=== PATIENT | male | born 1955 | race Caucasian/White ===

== ENCOUNTER 2018-05-07 14:57 | Inpatient (IN) | payer MEDICAID, OTHER ==
[2018-05-07 15:28] LABS: ADD MAN DIFF? NO
[2018-05-07 15:34] LABS: WHITE BLOOD COUNT 7.2 10^3/ul (4.8-10.8)
[2018-05-07 15:34] LABS: BASOPHIL # 0.1 10^3/ul (0.0-0.1); BASOPHILS % 0.8 % (0.0-2.0); EOSINOPHILS # 0.1 10^3/ul (0.0-0.5); EOSINOPHILS % 1.7 % (0.0-7.0); HEMATOCRIT 40.4 % (42.0-52.0); HEMOGLOBIN 13.7 g/dl (14.0-18.0); LYMPHOCYTES # 1.5 10^3/ul (0.8-2.9); LYMPHOCYTES % 20.5 % (15.0-51.0); MEAN CORPUSCULAR HEMOGLOBIN 31.4 pg (29.0-33.0); MEAN CORPUSCULAR HGB CONC 33.9 g/dl (32.0-37.0); MEAN CORPUSCULAR VOLUME 92.4 fl (82.0-101.0); MEAN PLATELET VOLUME 12.2 fl (7.4-10.4); MONOCYTE # 0.6 10^3/ul (0.3-0.9); MONOCYTES % 8.8 % (0.0-11.0); NEUTROPHIL # 4.8 10^3/ul (1.6-7.5); NEUTROPHILS % 66.9 % (39.0-77.0); PLATELET COUNT 132 10^3/UL (140-415); RED BLOOD COUNT 4.37 10^6/ul (4.70-6.10); RED CELL DISTRIBUTION WIDTH 13.2 % (11.5-14.5)
[2018-05-07 15:50] LABS: ANION GAP 16 (8-16); BLOOD UREA NITROGEN 15 mg/dl (7-20); CALCIUM 9.1 mg/dl (8.4-10.2); CARBON DIOXIDE 23 mmol/L (21-31); CHLORIDE 105 mmol/L (97-110); CREATININE 0.73 mg/dl (0.61-1.24); GLUCOSE 118 mg/dl (70-220); MAGNESIUM 1.9 mg/dl (1.7-2.5); POTASSIUM 3.9 mmol/L (3.5-5.1); SODIUM 140 mmol/L (135-144)
[2018-05-07 15:53] LABS: INR 1.02; PARTIAL THROMBOPLASTIN TIME 27.5 Sec (25.0-35.0); PROTIME 13.5 Sec (11.9-14.9); PT RATIO 1.1
[2018-05-07 16:02] LABS: TROPONIN-I 0.011 ng/ml (0.000-0.120)
[2018-05-07] MEDS ORDERED: DOCUSATE SODIUM 100 MG CAP PO (17:00)
[2018-05-07] MEDS ORDERED: NACL 0.9% 3 ML SYG IV (17:00)
[2018-05-07] MEDS ORDERED: NITROGLYCERIN (SL) 0.4 MG TAB SL (17:00)
[2018-05-07] MEDS ORDERED: MAGNESIUM HYDROXIDE 30ML CUP PO (17:00)
[2018-05-07] MEDS ORDERED: ONDANSETRON 4 MG INJ IV (17:00)
[2018-05-07] MEDS: ASPIRIN 325 MG TAB PO (17:02)
[2018-05-07] MEDS ORDERED: GLUCAGON 1 MG INJ IM (19:00)
[2018-05-07] MEDS ORDERED: GLUCOSE GEL 15 GRAM TUBE PO ×2 (19:00)
[2018-05-07] MEDS ORDERED: GLUCOSE GEL 15 GRAM TUBE BUCCAL (19:00)
[2018-05-07] MEDS ORDERED: DEXTROSE 50% 50 ML SYRINGE IV ×2 (19:00)
[2018-05-07] MEDS: HYPOGLYCEMIA PROTOCOL when Glucose is <70 mg/dL or symptomatic <90 mg/dL. XX (19:52)
[2018-05-07 20:19] LABS: CREATINE KINASE 686 IU/L (23-200)
[2018-05-07 20:31] LABS: CK INDEX 1.6; TROPONIN-I 0.033 ng/ml (0.000-0.120)
[2018-05-07] MEDS: INSULIN ASPART [NOVOLOG] 3 ML PEN SC (20:41)
[2018-05-07] MEDS: HYDROCODONE/APAP (5/325) TAB PO (21:27)
[2018-05-07] MEDS: NITROGLYCERIN 2% 1 GM OINT PKT TD (21:28)
[2018-05-08 00:05] LABS: CREATINE KINASE 811 IU/L (23-200)
[2018-05-08] MEDS: ACETAMINOPHEN 325 MG TAB PO ×2 (00:17→06:06)
[2018-05-08 00:19] LABS: CK INDEX 1.2; TROPONIN-I 0.034 ng/ml (0.000-0.120)
[2018-05-08 03:57] LABS: ADD MAN DIFF? NO
[2018-05-08 04:05] LABS: WHITE BLOOD COUNT 7.2 10^3/ul (4.8-10.8)
[2018-05-08 04:05] LABS: BASOPHIL # 0.1 10^3/ul (0.0-0.1); BASOPHILS % 0.7 % (0.0-2.0); EOSINOPHILS # 0.1 10^3/ul (0.0-0.5); EOSINOPHILS % 1.3 % (0.0-7.0); HEMATOCRIT 39.1 % (42.0-52.0); HEMOGLOBIN 13.1 g/dl (14.0-18.0); LYMPHOCYTES # 1.3 10^3/ul (0.8-2.9); LYMPHOCYTES % 17.5 % (15.0-51.0); MEAN CORPUSCULAR HGB CONC 33.5 g/dl (32.0-37.0); MEAN CORPUSCULAR VOLUME 92.4 fl (82.0-101.0); MEAN PLATELET VOLUME 11.9 fl (7.4-10.4); MONOCYTE # 0.8 10^3/ul (0.3-0.9); MONOCYTES % 10.7 % (0.0-11.0); NEUTROPHILS % 69.4 % (39.0-77.0); PLATELET COUNT 129 10^3/UL (140-415); RED BLOOD COUNT 4.23 10^6/ul (4.70-6.10); RED CELL DISTRIBUTION WIDTH 13.1 % (11.5-14.5)
[2018-05-08 04:35] LABS: ANION GAP 9 (8-16); BLOOD UREA NITROGEN 12 mg/dl (7-20); CALCIUM 8.8 mg/dl (8.4-10.2); CARBON DIOXIDE 29 mmol/L (21-31); CHLORIDE 107 mmol/L (97-110); CHOL/HDL RATIO 2.2 RATIO; CHOLESTEROL 92 mg/dl (100-200); CREATINE KINASE 710 IU/L (23-200); CREATININE 0.67 mg/dl (0.61-1.24); GLUCOSE 111 mg/dl (70-220); HDL CHOLESTEROL 41 mg/dl (30-78); LDL CHOLESTEROL,CALCULATED 35 mg/dl; POTASSIUM 4.1 mmol/L (3.5-5.1); SODIUM 141 mmol/L (135-144); TRIGLYCERIDES 82 mg/dl (0-149); TROPONIN-I 0.041 ng/ml (0.000-0.120)
[2018-05-08 04:37] LABS: CK-MB 6.95 ng/ml (0.0-2.4)
[2018-05-08 04:43] LABS: FREE T4 (FREE THYROXINE) 1.26 ng/dl (0.78-2.44)
[2018-05-08] MEDS: PANTOPRAZOLE (EC) 40 MG TAB PO (06:03)
[2018-05-08 07:06] LABS: CREATINE KINASE 725 IU/L (23-200)
[2018-05-08 07:18] LABS: CK INDEX 0.8
[2018-05-08 07:20] LABS: CK-MB 6.14 ng/ml (0.0-2.4)
[2018-05-08 07:51] LABS: ALANINE AMINOTRANSFERASE 91 IU/L (13-69); ALBUMIN/GLOBULIN RATIO 1.37; ALKALINE PHOSPHATASE 49 IU/L (42-121); ANION GAP 12 (8-16); ASPARTATE AMINO TRANSFERASE 69 IU/L (15-46); BILIRUBIN,INDIRECT 0.9 mg/dl (0-1.1); BILIRUBIN,TOTAL 0.9 mg/dl (0.2-1.3); BLOOD UREA NITROGEN 11 mg/dl (7-20); CALCIUM 9.1 mg/dl (8.4-10.2); CARBON DIOXIDE 26 mmol/L (21-31); CHLORIDE 108 mmol/L (97-110); CREATININE 0.68 mg/dl (0.61-1.24); GLUCOSE 118 mg/dl (70-220); POTASSIUM 3.9 mmol/L (3.5-5.1); SODIUM 142 mmol/L (135-144); TOTAL PROTEIN 6.9 g/dl (6.1-8.1)
[2018-05-08 08:00] LABS: B-TYPE NATRIURETIC PEPTIDE 3180 PG/ML (0-125)
[2018-05-08] MEDS: INSULIN ASPART [NOVOLOG] 3 ML PEN SC ×2 (08:00→12:00)
[2018-05-08] MEDS: ASPIRIN 81 MG TAB PO (08:31)
[2018-05-08] MEDS: FUROSEMIDE 40 MG TAB PO (08:31)
[2018-05-08] MEDS: HYDROCODONE/APAP (5/325) TAB PO (11:55)
[2018-05-08] MEDS ORDERED: ATORVASTATIN 40 MG TAB PO (21:00)
== END 2018-05-08 13:20 | disposition home or self-care (01) | DRG 307 ==
LOC: MS4 05-08 00:11 → E/R 14:57 → MS4 18:46 → MS3 16:25
PROVIDERS: Internal Medicine
DX: I35.0 Nonrheumatic aortic (valve) stenosis (principal); I25.10 Atherosclerotic heart disease of native coronary artery without angina pectoris; I10 Essential (primary) hypertension; E11.9 Type 2 diabetes mellitus without complications; I69.398 Other sequelae of cerebral infarction; H54.7 Unspecified visual loss; R60.0 Localized edema; E78.5 Hyperlipidemia, unspecified; E66.01 Morbid (severe) obesity due to excess calories; Z68.32 Body mass index [BMI] 32.0-32.9, adult; R01.1 Cardiac murmur, unspecified; Z87.891 Personal history of nicotine dependence; R07.9 Chest pain, unspecified; K21.9 Gastro-esophageal reflux disease without esophagitis
CPT/HCPCS: 36415; 70450; 71045; 72125; 80048; 80053; 80061; 82550; 82553; 82962; 83036; 83735; 83880; 84439; 84443; 84484; 85025; 85610; 85730; 93005; 93306; 93970; 97162; 99291-25